=== PATIENT | female | born 1955 | race African-American/Black ===

== ENCOUNTER 2021-07-18 16:13 | Inpatient (IN) | payer OTHER ==
[~2021-07-18] VITALS: Ht 152.4 cm; Wt 106.1 kg
[2021-07-18 17:04] LABS: BASOPHILS % 0.7 % (0.0-2.0); EOSINOPHILS % 1.3 % (0.0-5.0); LYMPHOCYTES % 16.4 % (20.0-50.0); MEAN CORPUSCULAR HEMOGLOBIN 18.7 pg (28.0-32.0); MEAN CORPUSCULAR VOLUME 63.3 fL (81.0-99.0); MEAN PLATELET VOLUME 8.3 fl (7.4-10.4); MONOCYTES % 8.6 % (2.0-8.0); PLATELET 414 x1000/uL (130-400)
[2021-07-18 17:12] LABS: HEMOGLOBIN. 6.9 g/dL (12.0-16.0)
[2021-07-18 17:13] LABS: HEMATOCRIT. 23.4 % (36.0-48.0)
[2021-07-18 17:19] LABS: CHLORIDE 111 mEq/L (98-107)
[2021-07-18 18:21] LABS: PLATELET ESTIMATE SLIGHTLY INCREASED
[2021-07-18] MEDS ORDERED: DOCUSATE SODIUM 100MG CAPSULE PO PRN (23:00)
[2021-07-18] MEDS ORDERED: ONDANSETRON HCL 4MG/2ML INJ IV PRN (23:00)
[2021-07-18] MEDS ORDERED: ZOLPIDEM TARTRATE 5MG TABLET PO PRN (23:00)
[2021-07-18] MEDS ORDERED: GUAIFENESIN 200MG/10ML SUGAR FREE UDC PO PRN (23:00)
[2021-07-18] MEDS ORDERED: ACETAMINOPHEN 325MG TABLET PO PRN ×2 (23:00)
[2021-07-18] MEDS ORDERED: MAGNESIUM/ALUMINUM HYDROXIDE/SIMETHICONE 30ML UDC PO PRN (23:00)
[2021-07-18] MEDS ORDERED: NITROGLYCERIN 0.4MG TABLET SL SL PRN (23:00)
[2021-07-18] MEDS ORDERED: PANTOPRAZOLE SODIUM 40 MG/VIAL IV SCH (23:00)
[2021-07-18] MEDS ORDERED: IPRATROPIUM/ALBUTEROL 0.5-3(2.5)MG/3ML NEB NEB PRN (23:00)
[2021-07-18] MEDS ORDERED: CLONIDINE 0.1MG TABLET PO PRN (23:00)
[2021-07-18] MEDS ORDERED: KETOROLAC 15MG/ML VIAL IV PRN (23:00)
[2021-07-19] MEDS ORDERED: PANTOPRAZOLE SODIUM 40 MG/VIAL IV SCH (03:00)
[2021-07-19 05:06] LABS: BASOPHILS % 2.2 % (0.0-2.0); EOSINOPHILS % 2.7 % (0.0-5.0); HEMATOCRIT. 22.8 % (36.0-48.0); LYMPHOCYTES % 20.4 % (20.0-50.0); MEAN CORPUSCULAR VOLUME 63.4 fL (81.0-99.0); MEAN PLATELET VOLUME 7.7 fl (7.4-10.4); MONOCYTES % 6.9 % (2.0-8.0); NEUTROPHILS % 67.8 % (40.0-76.0); PLATELET 390 x1000/uL (130-400); RED CELL DISTRIBUTION WIDTH 21.5 % (11.6-14.6)
[2021-07-19 05:13] LABS: CHLORIDE 113 mEq/L (98-107)
[2021-07-19 05:16] LABS: ETHANOL BLOOD < 10 mg/dL
[2021-07-19 05:18] LABS: HEMOGLOBIN. 6.8 g/dL (12.0-16.0)
[2021-07-19 05:20] LABS: TOTAL IRON BINDING CAPACITY 373 ug/dL (250-450)
[2021-07-19 05:33] LABS: FOLIC ACID (FOLATE) SERUM 4.9 ng/mL (>5.38)
[2021-07-19] MEDS ORDERED: AMIODARONE HCL 200 MG TABLET PO SCH (09:00)
[2021-07-19] MEDS: LISINOPRIL 20MG TABLET PO SCH ×3 (10:50→21:12)
[2021-07-19 11:05] LABS: BASOPHILS % 0.2 % (0.0-2.0); EOSINOPHILS % 1.6 % (0.0-5.0); HEMATOCRIT. 27.6 % (36.0-48.0); HEMOGLOBIN. 8.5 g/dL (12.0-16.0); LYMPHOCYTES % 15.8 % (20.0-50.0); MEAN CORPUSCULAR HEMOGLOBIN 20.1 pg (28.0-32.0); MEAN CORPUSCULAR VOLUME 65.7 fL (81.0-99.0); MEAN PLATELET VOLUME 7.1 fl (7.4-10.4); MONOCYTES % 7.6 % (2.0-8.0); NEUTROPHILS % 74.8 % (40.0-76.0); PLATELET 369 x1000/uL (130-400); RED BLOOD CELL COUNT 4.21 mill/uL (4.2-5.4); RED CELL DISTRIBUTION WIDTH 23.1 % (11.6-14.6)
[2021-07-19] MEDS: IRON SUCROSE COMPLEX 100 MG/5 ML ML IV SCH (14:40)
[2021-07-19] MEDS ORDERED: LISI-649 PO (15:20)
[2021-07-19 15:43] VITALS: BP 149/61
[2021-07-19 16:00] VITALS: BP 149/61
[2021-07-19 20:00] VITALS: BP 136/57
[2021-07-19] MEDS: PANTOPRAZOLE SODIUM 40 MG/VIAL IV SCH ×2 (21:12→21:13)
[2021-07-20] VITALS: BP 129/43
[2021-07-20 04:00] VITALS: BP 103/52
[2021-07-20 07:25] LABS: BASOPHILS % 0.7 % (0.0-2.0); HEMATOCRIT. 24.2 % (36.0-48.0); HEMOGLOBIN. 7.4 g/dL (12.0-16.0); LYMPHOCYTES % 15.2 % (20.0-50.0); MEAN CORPUSCULAR HEMOGLOBIN 20.3 pg (28.0-32.0); MEAN CORPUSCULAR VOLUME 66.3 fL (81.0-99.0); MEAN PLATELET VOLUME 7.7 fl (7.4-10.4); NEUTROPHILS % 74.1 % (40.0-76.0); PLATELET 347 x1000/uL (130-400); RED BLOOD CELL COUNT 3.65 mill/uL (4.2-5.4); RED CELL DISTRIBUTION WIDTH 22.5 % (11.6-14.6)
[2021-07-20 07:45] LABS: CHLORIDE 112 mEq/L (98-107)
[2021-07-20 08:00] VITALS: BP 132/45
[2021-07-20] MEDS: IRON SUCROSE COMPLEX 100 MG/5 ML ML IV SCH (09:19)
[2021-07-20] MEDS ORDERED: DEXT 5%/0.9% NACL 1,000 ML IV SCH (11:00)
[2021-07-20 12:00] VITALS: BP 121/44
[2021-07-20] MEDS: DEXT 5%/0.9% NACL 1,000 ML IV SCH ×2 (12:15→21:00)
[2021-07-20 16:00] VITALS: BP 142/53
[2021-07-20 20:00] VITALS: BP 130/50
[2021-07-20] MEDS: PANTOPRAZOLE SODIUM 40 MG/VIAL IV SCH (22:11)
[2021-07-20] MEDS: LISINOPRIL 20MG TABLET PO SCH (22:11)
[2021-07-21] VITALS (10 sets, daily range): BP systolic 113–146; BP diastolic 50–65
[2021-07-21 06:52] LABS: PROTHROMBIN TIME 11.1 sec (9.6-11.0)
[2021-07-21 07:00] LABS: BASOPHILS % 0.4 % (0.0-2.0); EOSINOPHILS % 1.5 % (0.0-5.0); HEMATOCRIT. 25.6 % (36.0-48.0); HEMOGLOBIN. 7.9 g/dL (12.0-16.0); LYMPHOCYTES % 16.1 % (20.0-50.0); MEAN CORPUSCULAR HEMOGLOBIN 20.5 pg (28.0-32.0); MEAN CORPUSCULAR VOLUME 66.2 fL (81.0-99.0); MEAN PLATELET VOLUME 8.6 fl (7.4-10.4); MONOCYTES % 6.2 % (2.0-8.0); NEUTROPHILS % 75.8 % (40.0-76.0); PLATELET 353 x1000/uL (130-400); RED BLOOD CELL COUNT 3.86 mill/uL (4.2-5.4); RED CELL DISTRIBUTION WIDTH 22.9 % (11.6-14.6)
[2021-07-21] MEDS: DEXT 5%/0.9% NACL 1,000 ML IV SCH ×2 (07:00→17:25)
[2021-07-21 07:08] LABS: CHLORIDE 111 mEq/L (98-107)
[2021-07-21] MEDS: LISINOPRIL 20MG TABLET PO SCH ×2 (09:55→20:33)
[2021-07-21] MEDS: PANTOPRAZOLE SODIUM 40 MG/VIAL IV SCH ×2 (09:55→20:33)
[2021-07-21] MEDS: IRON SUCROSE COMPLEX 100 MG/5 ML ML IV SCH (09:55)
[2021-07-21] MEDS ORDERED: FENTANYL CITRATE/PF 50MCG/ML 2ML VIAL ONE (12:58)
[2021-07-21] MEDS ORDERED: PROPOFOL 200MG/20ML VIAL IV ONE (12:58)
[2021-07-21] MEDS ORDERED: MIDAZOLAM HCL 2 MG/2 ML VIAL ONE (12:58)
[2021-07-21 18:45] LABS: HEMATOCRIT 29.9 % (36.0-48.0); HEMOGLOBIN 9.1 g/dL (12.0-16.0)
[2021-07-21] MEDS: METOCLOPRAMIDE HCL 10MG/2ML VIAL IV SCH ×2 (20:32→23:09)
[2021-07-21] MEDS: SORBITOL 70% SOLN 30ML PO SCH ×2 (20:33→23:09)
[2021-07-21] MEDS: BISACODYL 5MG TABLET PO SCH ×2 (20:33→23:39)
[2021-07-22] VITALS: BP 135/47
[2021-07-22] MEDS: DEXT 5%/0.9% NACL 1,000 ML IV SCH ×3 (02:19→23:38)
[2021-07-22 04:00] VITALS: BP 150/77
[2021-07-22] MEDS: SORBITOL 70% SOLN 30ML PO SCH ×2 (05:04→08:18)
[2021-07-22] MEDS: METOCLOPRAMIDE HCL 10MG/2ML VIAL IV SCH ×2 (05:04→08:13)
[2021-07-22] MEDS: BISACODYL 5MG TABLET PO SCH ×2 (05:37→08:18)
[2021-07-22 08:00] VITALS: BP 156/56
[2021-07-22] MEDS: PANTOPRAZOLE SODIUM 40 MG/VIAL IV SCH ×2 (08:15→20:00)
[2021-07-22 08:18] LABS: BASOPHILS % 0.3 % (0.0-2.0); EOSINOPHILS % 0.2 % (0.0-5.0); HEMATOCRIT. 31.6 % (36.0-48.0); HEMOGLOBIN. 9.6 g/dL (12.0-16.0); LYMPHOCYTES % 11.7 % (20.0-50.0); MEAN CORPUSCULAR HEMOGLOBIN 21.3 pg (28.0-32.0); MEAN CORPUSCULAR VOLUME 70.1 fL (81.0-99.0); MEAN PLATELET VOLUME 7.6 fl (7.4-10.4); NEUTROPHILS % 82.8 % (40.0-76.0); PLATELET 347 x1000/uL (130-400); RED BLOOD CELL COUNT 4.51 mill/uL (4.2-5.4); RED CELL DISTRIBUTION WIDTH 25.3 % (11.6-14.6)
[2021-07-22] MEDS: LISINOPRIL 20MG TABLET PO SCH ×2 (08:18→20:00)
[2021-07-22 08:23] LABS: INR 1.1; PROTHROMBIN TIME 11.4 sec (9.6-11.0)
[2021-07-22 08:40] LABS: CHLORIDE 113 mEq/L (98-107)
[2021-07-22 12:00] VITALS: BP 154/61
[2021-07-22] MEDS ORDERED: LABETALOL 5MG/ML SYR 20 MG/4 ML SYRINGE IV PRN (14:15)
[2021-07-22] MEDS ORDERED: ONDANSETRON HCL 4MG/2ML INJ IV PRN (14:15)
[2021-07-22] MEDS ORDERED: HYDROMORPHONE HCL/PF 2MG/ML CPJ IV PRN (14:15)
[2021-07-22] MEDS ORDERED: MEPERIDINE HCL/PF 25MG/ML CPJ IV PRN (14:15)
[2021-07-22] MEDS ORDERED: PROPOFOL 200MG/20ML VIAL IV ONE (14:23)
[2021-07-22 16:00] VITALS: BP 130/72
[2021-07-22 16:39] LABS: PLATELET ESTIMATE NORMAL
[2021-07-22 20:00] VITALS: BP 142/57
[2021-07-23 07:10] LABS: BASOPHILS % 0.5 % (0.0-2.0); EOSINOPHILS % 1.5 % (0.0-5.0); HEMATOCRIT. 30.4 % (36.0-48.0); HEMOGLOBIN. 9.4 g/dL (12.0-16.0); LYMPHOCYTES % 12.5 % (20.0-50.0); MEAN CORPUSCULAR HEMOGLOBIN 21.8 pg (28.0-32.0); MEAN CORPUSCULAR VOLUME 70.4 fL (81.0-99.0); MEAN PLATELET VOLUME 8.5 fl (7.4-10.4); NEUTROPHILS % 78.5 % (40.0-76.0); PLATELET 313 x1000/uL (130-400); RED BLOOD CELL COUNT 4.32 mill/uL (4.2-5.4); RED CELL DISTRIBUTION WIDTH 25.6 % (11.6-14.6)
[2021-07-23 08:00] VITALS: BP 156/73
[2021-07-23 08:54] LABS: CHLORIDE 117 mEq/L (98-107)
[2021-07-23] MEDS: DEXT 5%/0.9% NACL 1,000 ML IV SCH (09:00)
[2021-07-23] MEDS: LISINOPRIL 20MG TABLET PO SCH (09:42)
[2021-07-23] MEDS ORDERED: LIDOCAINE HCL 1% 20ML VIAL (Pyxis) INJ ONE (10:00)
[2021-07-23] MEDS ORDERED: BARIUM SULFATE(VOLUMEN) 450 ML ORAL.SUSP ONE (10:21)
[2021-07-23 12:00] VITALS: BP 132/66
[2021-07-23] MEDS: PANTOPRAZOLE SODIUM 40 MG/VIAL IV SCH (12:13)
[2021-07-23] MEDS ORDERED: IOHEXOL-350 100 ML BOTTLE ONE (12:19)
[2021-07-23 16:00] VITALS: BP 114/84
[2021-07-23 16:43] VITALS: BP 132/66
== END 2021-07-23 17:58 | disposition home or self-care (01) | DRG 241 ==
LOC: ER 16:13 → 6EST 22:52 → ENRESERV 07-19 11:38
PROVIDERS: ADMIT Internal Medicine; ATTEND Internal Medicine
PROC: 30233N1 Transfusion of Nonautologous Red Blood Cells into Peripheral Vein, Percutaneous Approach (ICD-10-PCS; principal; 2021-07-19)
PROC: 0DB68ZX Excision of Stomach, Via Natural or Artificial Opening Endoscopic, Diagnostic (ICD-10-PCS; 2021-07-21)
PROC: 0DJD8ZZ Inspection of Lower Intestinal Tract, Via Natural or Artificial Opening Endoscopic (ICD-10-PCS; 2021-07-22)
PROC: 02HV33Z Insertion of Infusion Device into Superior Vena Cava, Percutaneous Approach (ICD-10-PCS; 2021-07-23)
PROC: B5181ZA Fluoroscopy of Superior Vena Cava using Low Osmolar Contrast, Guidance (ICD-10-PCS; 2021-07-23)
PROC: B548ZZA Ultrasonography of Superior Vena Cava, Guidance (ICD-10-PCS; 2021-07-23)
DX: K29.71 Gastritis, unspecified, with bleeding (principal); K21.01 Gastro-esophageal reflux disease with esophagitis, with bleeding; E44.0 Moderate protein-calorie malnutrition; D62 Acute posthemorrhagic anemia; E83.51 Hypocalcemia; K57.31 Diverticulosis of large intestine without perforation or abscess with bleeding; K22.6 Gastro-esophageal laceration-hemorrhage syndrome; F17.210 Nicotine dependence, cigarettes, uncomplicated; I10 Essential (primary) hypertension; I16.1 Hypertensive emergency; Z20.822 Contact with and (suspected) exposure to COVID-19; E66.01 Morbid (severe) obesity due to excess calories; K21.9 Gastro-esophageal reflux disease without esophagitis; Z68.42 Body mass index [BMI] 45.0-49.9, adult; Z90.710 Acquired absence of both cervix and uterus; E66.9 Obesity, unspecified
CPT/HCPCS: 36415; 36573; 74177; 80048; 80053; 80320; 82270; 82607; 82728; 82746; 83540; 83550; 83615; 83735; 84100; 84145; 84443; 85014; 85018; 85025; 85044; 86850; 86900; 86920; 87426; 88305; 93005; 93970; 99285; C1725; C1893; C9113; J2250; J2704; J2765; J3010; J3490; J7042; P9016; Q9967; G0480

== ENCOUNTER 2021-08-13 17:06 | Emergency (ER) | payer OTHER ==
[~2021-08-13] VITALS: Ht 160 cm; Wt 85.0 kg
[~2021-08-13 17:06] MED LIST: LISI-649 PO
[2021-08-13 19:04] LABS: BASOPHILS % 0.5 % (0.0-2.0); EOSINOPHILS % 1.7 % (0.0-5.0); HEMOGLOBIN. 10.8 g/dL (12.0-16.0); LYMPHOCYTES % 16.7 % (20.0-50.0); MEAN CORPUSCULAR HEMOGLOBIN 22.7 pg (28.0-32.0); MEAN CORPUSCULAR VOLUME 73.7 fL (81.0-99.0); MEAN PLATELET VOLUME 8.6 fl (7.4-10.4); MONOCYTES % 6.4 % (2.0-8.0); NEUTROPHILS % 74.7 % (40.0-76.0); PLATELET 336 x1000/uL (130-400); RED BLOOD CELL COUNT 4.75 mill/uL (4.2-5.4); RED CELL DISTRIBUTION WIDTH 29.2 % (11.6-14.6)
[2021-08-13 19:10] LABS: CHLORIDE 109 mEq/L (98-107)
[2021-08-13 19:54] LABS: PLATELET ESTIMATE NORMAL
[2021-08-13 20:14] VITALS: BP 157/64
== END 2021-08-13 20:31 | disposition admitted as inpatient to this hospital (09) ==
LOC: ER 17:06 → CANBEDREQ 23:19
DX: I10 Essential (primary) hypertension (principal); D64.9 Anemia, unspecified
CPT/HCPCS: 36415; 71045; 80053; 83880; 84484; 85025; 93005; 99285